=== PATIENT | female | born 2000 | race Hispanic/Latino ===

== ENCOUNTER 2019-07-23 21:26 | Emergency (ER) | payer SELFPAY ==
[~2019-07-23] VITALS: Ht 157.5 cm; Wt 74.8 kg
[2019-07-23 21:47] VITALS: BP 137/84
--- NOTE | 2019-07-23 21:50 | Emergency Department Note ---
History of Present Illnes History of Present Illness Chief Complaint: Skin Rash or Abscess History of Present Illness This is a 19 year old female c cc cyst on her scalp, seen her doctor yesterday , wants second appointment but does not want to be seen . Onset (how long ago): day(s) (2) Location: scalp Quality: dull Severity: mild Onset quality: gradual Duration (how long): day(s) (2) Timing of current episode: constant Context: recent illness, recent surgery, recent immobilization, recent travel, trauma/injury, new medications, hx of DVT/PE, non-compliance w/ medications, other Relieving factors: none Exacerbating factors: none Associated symptoms: denies other symptoms Treatments prior to arrival: none Past Medical/Family History Physician Review I have reviewed the patient's past medical and family history. Any updates have been documented here. Past Medical History Past Medical History: None Past Surgical History: None Social History Smoking Cessation: Never Smoker Review of Systems Review of Systems Constitutional: no symptoms EENTM: no symptoms Cardiovascular: no symptoms Respiratory: no symptoms Gastrointestinal: no symptoms Genitourinary: no symptoms Musculoskeletal: no symptoms Neurological: no symptoms Psychological: no symptoms Endocrine: no symptoms Hematological/Lymphatic: no symptoms Review of other systems All other systems reviewed and negative. Physical Exam Physical Exam CONSTITUTIONAL HENT EYES Eyes: PERRL NECK Neck: ROM normal PULMONARY Pulmonary: effort normal CARDIOVASCULAR Cardiovascular: regular rhythm GASTROINTESTINAL Abdominal: soft GENITOURINARY SKIN MUSCULOSKELETAL Musculoskeletal: ROM normal NEUROLOGICAL Neurological: alert PSYCHOLOGICAL Critical Care Time Subsequent provider I assumed direction of critical care for this patient from another provider of my specialty. Assessment & Plan Assessment & Plan Final Impression: (1) Sebaceous cyst Assessment & Plan patient refused treatment and requested to be screened out Depart Disposition: HOME, SELF-CARE EDDI MINA MD July 23, 2019 21:50
== END 2019-07-23 21:27 | disposition left against medical advice (07) ==
LOC: FSED 21:26
DX: L72.3 Sebaceous cyst (principal)